=== PATIENT | female | born 1980 | race Caucasian/White ===

== ENCOUNTER 2024-03-25 01:09 | Emergency (ER) | payer MEDICAID ==
[~2024-03-25] VITALS: Ht 170.2 cm; Wt 91.0 kg
[2024-03-25 01:18] VITALS: BP 138/68; PULSE 98; RESP 18; TEMP 98.2; O2SAT 97
[2024-03-25 02:31] LABS: CHLORIDE 110 mEq/L (98-107); POTASSIUM 3.9 mEq/L (3.5-5.1); SODIUM 141 mEq/L (136-145)
[2024-03-25 02:32] LABS: CALCIUM 8.9 mg/dL (8.7-10.4); CARBON DIOXIDE 19 mEq/L (21-32)
[2024-03-25 02:36] LABS: HCG SCREEN NEGATIVE
[2024-03-25 02:37] LABS: CREATININE 0.5 mg/dL (0.6-1.0); GLUCOSE 89 mg/dL (70-105); UREA NITROGEN BLOOD 6 mg/dL (9-23)
[2024-03-25 03:23] LABS: HEMATOCRIT. 32.9 % (36.0-48.0); HEMOGLOBIN. 9.9 g/dL (12.0-16.0); MEAN CORPUSCULAR HEMOGLOBIN 24.3 pg (28.0-32.0); MEAN CORPUSCULAR HGB CONC 30.2 g/dL (31.0-37.0); MEAN CORPUSCULAR VOLUME 80.4 fL (81.0-99.0); MEAN PLATELET VOLUME 8.3 fl (7.4-10.4); PLATELET 67 x1000/uL (130-400); RED BLOOD CELL COUNT 4.09 mill/uL (4.2-5.4); RED CELL DISTRIBUTION WIDTH 23.6 % (11.6-14.6); WHITE BLOOD COUNT 4.9 x1000/uL (4.5-11.0)
[2024-03-25] MEDS ORDERED: IBUP-2029 MT (03:40)
[2024-03-25 04:43] LABS: DIFFERENTIAL COMMENT 1
[2024-03-25 05:39] LABS: HYPOCHROMASIA 1N; PLATELET ESTIMATE DECREASED
== END 2024-03-25 04:10 | disposition home or self-care (01) ==
LOC: ER 01:09
DX: I87.1 Compression of vein (principal); I83.93 Asymptomatic varicose veins of bilateral lower extremities; Z59.00 Homelessness unspecified; Z88.8 Allergy status to other drugs, medicaments and biological substances
CPT/HCPCS: 36415; 80048; 84703; 85025; 93970; 99284

== ENCOUNTER 2024-03-30 22:50 | Emergency (ER) | payer MEDICAID ==
[~2024-03-30] VITALS: Ht 167.6 cm; Wt 100.0 kg
[~2024-03-30 22:50] MED LIST: IBUP-2029 MT
[2024-03-30 22:53] VITALS: BP 160/80; PULSE 116; RESP 16; TEMP 98.6; O2SAT 98
== END 2024-03-31 02:30 | disposition home or self-care (01) ==
LOC: ER 22:50
DX: I83.93 Asymptomatic varicose veins of bilateral lower extremities (principal); I10 Essential (primary) hypertension; F31.9 Bipolar disorder, unspecified
CPT/HCPCS: 99283

== ENCOUNTER 2025-02-11 02:58 | Emergency (ER) | payer MEDICAID ==
[~2025-02-11] VITALS: Ht 154.9 cm; Wt 100.0 kg
[2025-02-11 03:12] VITALS: O2SAT 99
[2025-02-11] MEDS: KETOROLAC 15MG/ML VIAL IM ONE (04:21)
[2025-02-11] MEDS ORDERED: NAPR-1176 MT (04:55)
[2025-02-11 05:21] VITALS: BP 101/77; PULSE 80; RESP 16; TEMP 36.8; O2SAT 98
== END 2025-02-11 05:25 | disposition home or self-care (01) ==
LOC: ER 02:58
DX: I83.93 Asymptomatic varicose veins of bilateral lower extremities (principal); F31.9 Bipolar disorder, unspecified; I10 Essential (primary) hypertension; D64.9 Anemia, unspecified
CPT/HCPCS: 81025; 96372; 99283; J1885; Z7610

== ENCOUNTER 2025-02-20 10:35 | Inpatient (IN) | payer OTHER, MEDICAID ==
[~2025-02-20] VITALS: Ht 167.6 cm; Wt 108.0 kg
[~2025-02-20 10:35] MED LIST changes: +IBUP-1455 MT; -IBUP-2029 MT; +NAPR-1176 MT
[2025-02-20 10:38] VITALS: O2SAT 97
[2025-02-20] MEDS: SODIUM CHLORIDE 0.9% 1,000 ML IV ONE (11:17)
[2025-02-20 11:24] LABS: BASOPHILS % 2.5 % (0.0-2.0); EOSINOPHILS % 3.6 % (0.0-5.0); HEMATOCRIT. 24.8 % (36.0-48.0); HEMOGLOBIN. 7.9 g/dL (12.0-16.0); LYMPHOCYTES % 38.0 % (20.0-50.0); MEAN PLATELET VOLUME 6.9 fl (7.4-10.4); MONOCYTES % 9.7 % (2.0-8.0); NEUTROPHILS % 46.2 % (40.0-76.0); PLATELET 175 x1000/uL (130-400); RED BLOOD CELL COUNT 2.92 mill/uL (4.2-5.4); RED CELL DISTRIBUTION WIDTH 17.0 % (11.6-14.6)
[2025-02-20 11:39] LABS: CREATININE 0.4 mg/dL (0.6-1.0)
[2025-02-20 11:40] LABS: ETHANOL BLOOD 173 mg/dL (<10); TROPONIN I HIGH SENSITIVITY 4 ng/L (3.0-34); UREA NITROGEN BLOOD 6 mg/dL (9-23)
[2025-02-20 11:41] LABS: ASPARTATE AMINOTRANSFERASE 65 IU/L (<34); BILIRUBIN DIRECT 0.2 mg/dL (<=3.0)
[2025-02-20 11:42] LABS: BILIRUBIN TOTAL 0.5 mg/dL (0.1-1.0); PROTEIN TOTAL 6.6 g/dL (6.0-8.3)
[2025-02-20 13:35] LABS: BG BASE EXCESS 2.1 mmol/L (-2.0-3.0); BG CARBOXYHEMOGLOBIN 1.7 % (0.5-1.5); BG DEOXYHEMOGLOBIN 47.7 % (0.0-5.0); BG HCO3 ACT 27.1 mmol/L (21.0-28.0); BG METHEMOGLOBIN 0.3 % (0.5-1.5); BG OXYGEN SATURATION 51.3 % (94.0-98.0); BG OXYHEMOGLOBIN 50.3 % (94.0-98.0); BG PCO2 44.7 mmHg (32.0-45.0); BG PH 7.401 (7.350-7.450); BG PO2 31.6 mmHg (83.0-108.0); BG SAMPLE SITE VBG - N/A; BG TOTAL HEMOGLOBIN 8.0 g/dL (12.0-16.0); BG VENT MODE VBG - N/A
[2025-02-20 14:03] LABS: TROPONIN I HIGH SENSITIVITY < 4 ng/L (3.0-34)
[2025-02-20 14:55] LABS: HCG SCREEN NEGATIVE
[2025-02-20] MEDS ORDERED: ACETAMINOPHEN 325MG TABLET PO PRN ×2 (15:00)
[2025-02-20] MEDS ORDERED: GUAIFENESIN 200MG/10ML SUGAR FREE UDC PO PRN (15:00)
[2025-02-20] MEDS ORDERED: IPRATROPIUM/ALBUTEROL 0.5-3(2.5)MG/3ML NEB HHN PRN (15:00)
[2025-02-20] MEDS ORDERED: ONDANSETRON HCL 4MG/2ML INJ IV PRN (15:00)
[2025-02-20] MEDS ORDERED: DOCUSATE SODIUM 100MG CAPSULE PO PRN (15:00)
[2025-02-20] MEDS ORDERED: MAGNESIUM/ALUMINUM HYDROXIDE/SIMETHICONE 30ML UDC PO PRN (15:00)
[2025-02-20] MEDS ORDERED: CLONIDINE 0.1MG TABLET PO PRN (15:00)
[2025-02-20] MEDS: MAGNESIUM 2 G PREMIX 50 ML IV NR (15:14)
[2025-02-20] MEDS: PANTOPRAZOLE SODIUM 40 MG/VIAL IV SCH (15:14)
[2025-02-20 15:36] LABS: BASOPHILS % 2.0 % (0.0-2.0); EOSINOPHILS % 3.9 % (0.0-5.0); HEMATOCRIT. 23.1 % (36.0-48.0); HEMOGLOBIN. 7.5 g/dL (12.0-16.0); LYMPHOCYTES % 37.8 % (20.0-50.0); MEAN PLATELET VOLUME 7.7 fl (7.4-10.4); MONOCYTES % 9.7 % (2.0-8.0); NEUTROPHILS % 46.6 % (40.0-76.0); PLATELET 161 x1000/uL (130-400); RED BLOOD CELL COUNT 2.72 mill/uL (4.2-5.4); RED CELL DISTRIBUTION WIDTH 17.0 % (11.6-14.6)
[2025-02-20 16:00] VITALS: BP 140/88; PULSE 92; RESP 19; TEMP 36.2; O2SAT 100
[2025-02-20 16:20] VITALS: BP 120/64; PULSE 77; RESP 18; TEMP 36.418
[2025-02-20 16:21] LABS: HEPATITIS A AB IGM NEGATIVE (Negative)
[2025-02-20 16:22] LABS: HEPATITIS B CORE AB IGM NEGATIVE (Negative); HEPATITIS C AB NON REACTIVE (Neg) (Negative)
[2025-02-20] MEDS: ENOXAPARIN 30MG/0.3ML SYR SUBCUT SCH (18:25)
[2025-02-20] MEDS: LORAZEPAM 2MG/ML UD SYRINGE IV PRN (18:25)
[2025-02-20] MEDS: FOLIC ACID 1 MG, THIAMINE HCL 100 MG, MVI, ADULT NO.1 10 ML in DEXTROSE 5% WATER 1,000 ML IV ONE (18:47)
[2025-02-20 20:00] VITALS: BP 148/85; PULSE 98; RESP 18; TEMP 37; O2SAT 100
[2025-02-20] MEDS: IRON SUCROSE COMPLEX 100 MG/5 ML ML IV SCH (21:25)
[2025-02-20] MEDS: POTASSIUM CHLORIDE 20MEQ/PACKET PO SCH (21:25)
[2025-02-21] VITALS: BP 129/75; PULSE 106; RESP 17; TEMP 36.2; O2SAT 95
[2025-02-21 04:00] VITALS: BP 152/82; PULSE 98; RESP 18; TEMP 36.8; O2SAT 95
[2025-02-21 08:00] VITALS: BP 131/72; PULSE 92; RESP 18; TEMP 36.6; O2SAT 99
[2025-02-21] MEDS: FOLIC ACID 1MG TABLET PO SCH (09:03)
[2025-02-21] MEDS: THIAMINE HCL 100MG TABLET PO SCH (09:03)
[2025-02-21] MEDS: MULTIVITAMINS,THER W-MINERALS TABLET PO SCH (09:04)
[2025-02-21 12:00] VITALS: BP 123/68; PULSE 94; RESP 19; TEMP 36.7; O2SAT 95
[2025-02-21] MEDS ORDERED: THIA100T72 PO (12:30)
[2025-02-21] MEDS ORDERED: FOLI-43 PO (12:30)
[2025-02-21 13:42] LABS: BASOPHILS % 1.5 % (0.0-2.0); EOSINOPHILS % 5.6 % (0.0-5.0); HEMATOCRIT. 25.0 % (36.0-48.0); HEMOGLOBIN. 8.1 g/dL (12.0-16.0); LYMPHOCYTES % 22.4 % (20.0-50.0); MEAN PLATELET VOLUME 8.5 fl (7.4-10.4); MONOCYTES % 12.7 % (2.0-8.0); NEUTROPHILS % 57.8 % (40.0-76.0); PLATELET 100 x1000/uL (130-400); RED BLOOD CELL COUNT 2.91 mill/uL (4.2-5.4); RED CELL DISTRIBUTION WIDTH 16.9 % (11.6-14.6)
[2025-02-21 13:54] LABS: CREATININE 0.4 mg/dL (0.6-1.0); TRIGLYCERIDE 95 mg/dL (0-150); UREA NITROGEN BLOOD < 5 mg/dL (9-23)
[2025-02-21 13:55] LABS: ASPARTATE AMINOTRANSFERASE 52 IU/L (<34); BILIRUBIN DIRECT 0.3 mg/dL (<=3.0); BILIRUBIN TOTAL 0.9 mg/dL (0.1-1.0); LDL CHOLESTEROL 101 mg/dL (5-100); PROTEIN TOTAL 6.0 g/dL (6.0-8.3)
[2025-02-21 13:58] LABS: T4 FREE 1.11 ng/dL (0.89-1.76)
[2025-02-21] MEDS: CHLORDIAZEPOXIDE 25MG CAPSULE PO SCH (14:26)
[2025-02-21 15:56] VITALS: BP 114/72; PULSE 103; RESP 22; TEMP 97.8
[2025-02-21 16:00] VITALS: BP 114/72; PULSE 103; RESP 22; TEMP 36.6; O2SAT 99
== END 2025-02-21 17:11 | DRG 917 ==
LOC: ER 10:48 → 7EST 14:10 → EDBEDREQTM 14:20 → EDBEDREQ 14:20 → ENRESERV 15:08
PROVIDERS: ADMIT Hospitalist; ATTEND Hospitalist
DX: T50.991A Poisoning by other drugs, medicaments and biological substances, accidental (unintentional), initial encounter (principal); G92.8 Other toxic encephalopathy; J98.11 Atelectasis; E78.5 Hyperlipidemia, unspecified; E11.9 Type 2 diabetes mellitus without complications; F10.129 Alcohol abuse with intoxication, unspecified; E87.6 Hypokalemia; E83.42 Hypomagnesemia; I10 Essential (primary) hypertension; D72.819 Decreased white blood cell count, unspecified; D50.9 Iron deficiency anemia, unspecified; E03.8 Other specified hypothyroidism; F31.9 Bipolar disorder, unspecified; I89.0 Lymphedema, not elsewhere classified; Y92.89 Other specified places as the place of occurrence of the external cause
CPT/HCPCS: 36415; 36600; 71045; 80048; 80061; 80076; 80320; 82140; 82375; 82550; 82728; 82805; 83540; 83550; 83735; 84439; 84443; 84484; 84703; 85025; 86705; 86709; 87340; 93005; 96360; 99285; J1650; J2060; J2470; J3411; J3475; J3490; J7030; J7070; G0480